=== PATIENT | male | born 2000 | race Two or more races ===

== ENCOUNTER 2018-10-30 04:22 | Emergency (ER) | payer OTHER ==
[2018-10-30 04:27] VITALS: BP 134/94
[2018-10-30] MEDS ORDERED: IBUPROFEN 200 MG TAB PO ONE (04:36)
--- NOTE | 2018-10-30 04:39 | EDPHY ---
H & P Stated Complaint: Sore throat x several days, SOB. Time Seen by Provider: 10/30/18 04:28 HPI/ROS: Chief Complaint: Sore throat HPI: 18-year-old male presenting with 2-3 days of sore throat, frequent throat clearing, sensation of fullness in his throat. Mild pain with swallowing. No cough. No fevers or chills. Does have the sensation of fullness in both of his ears. No decrease in hearing. No chest pain or shortness of breath. No cough. ROS: 10 systems were reviewed and were negative except those elements noted in the HPI. PMH: Denies Social History: No smoking, no alcohol, no recreational drug use Family History: non-contributory Physical Exam: Gen: Awake, Alert, No Distress HEENT: Ears: Normal No sinus tenderness to percussion Nose: no rhinorrhea Eyes: PERRLA, EOMI Mouth: Moist mucosa mild oral pharyngeal erythema without edema or exudate Neck: Supple, no JVD, mild anterior cervical lymphadenopathy Chest: nontender, lungs clear to auscultation Heart: S1, S2 normal, no murmur Abd: Soft, non-tender, no guarding Back: no CVA tenderness, no midline tenderness Ext: no edema, non-tender Skin: no rash Neuro: CN II-XII intact, Sensation grossly intact, Strength 5/5 in bilateral upper and lower extremities - Personal History Current Tetanus/Diphtheria Vaccine: Yes Current Tetanus Diphtheria and Acellular Pertussis (TDAP): Yes - Medical/Surgical History Hx Asthma: No Hx Chronic Respiratory Disease: No Hx Diabetes: No Hx Cardiac Disease: No Hx Renal Disease: No Hx Cirrhosis: No Hx Alcoholism: No Hx HIV/AIDS: No Hx Splenectomy or Spleen Trauma: No Other PMH: denies - Social History Smoking Status: Never smoked Constitutional: Initial Vital Signs Temperature (C) 36.7 C 10/30/18 04:24 Heart Rate 76 10/30/18 04:24 Respiratory Rate 20 10/30/18 04:24 Blood Pressure 134/94 H 10/30/18 04:24 O2 Sat (%) 95 10/30/18 04:24 O2 Delivery Mode Room Air Allergies/Adverse Reactions: No Known Allergies Allergy (Unverified 10/30/18 04:24) Home Medications: Medication Instructions Recorded NK [No Known Home Meds] 10/30/18 Medical Decision Making ED Course/Re-evaluation: Well-appearing male with viral URI type symptoms with sinus drainage and postnasal drip. Will discharge with supportive therapy, follow up with primary care. Departure - Departure Disposition: Home, Routine, Self-Care Clinical Impression: Viral URI Condition: Good Instructions: Postnasal Drip (DC), Upper Respiratory Infection (ED) Additional Instructions: Alternate acetaminophen (1000 mg) with ibuprofen (400 mg) every 4 hours as needed for fevers, chills, aches or pain. You may take [id number] cough and cold medicines as needed for sinus drainage and postnasal drip. Follow up with primary care in about a week if symptoms are not improving. Referrals: Cherie Light MD [Medical Doctor] - As per Instructions
== END 2018-10-30 05:02 | disposition home or self-care (01) ==
DX: J06.9 Acute upper respiratory infection, unspecified (principal)

== ENCOUNTER → 2018-12-05 | Outpatient (CLI) | payer OTHER | LOC: FIMAGING 13:58 | PROVIDERS: ATTEND Family Medicine | DX: M41.115 Juvenile idiopathic scoliosis, thoracolumbar region (principal) ==